=== PATIENT | male | born 1965 | race African-American/Black ===

== ENCOUNTER → 2019-08-18 | Outpatient (CLI) | payer OTHER ==
[2015-05-27 14:58] VITALS: BP 152/78
[~2019-08-18] MED LIST: AMLO5TAB10 PO; LOSA1TAB25 PO
--- NOTE | 2019-08-18 16:41 | RAD ---
Bilateral lower extremity arterial ultrasound History: Hypertension, smoker, nonpalpable pulses of the lower extremities bilaterally Findings: Multiple grayscale, color, and duplex spectral analysis sonographic images were acquired of the lower extremity arteries bilaterally. There are no previous similar exams. There are mostly triphasic waveforms bilaterally other than biphasic waveforms of the left anterior tibial and dorsalis pedis arteries. No vessel occlusion is demonstrated. There is no velocity change in a pattern suggestive of significant focal stenosis. Velocities in cm/sec: RIGHT Common femoral artery 151 Profunda femoris artery 125 Proximal SFA 121 Mid SFA 120 Distal SFA 88 Popliteal artery 117 Posterior tibial artery 103 Peroneal artery 67 Anterior tibial artery 107 Dorsalis pedis artery 88 LEFT: Common femoral artery 164 Profunda femoris artery 142 Proximal SFA 121 Mid SFA 100 Distal SFA 79 Popliteal artery 78 Posterior tibial artery 97 Peroneal artery 58 Anterior tibial artery 68 Dorsalis pedis artery 56 Impression: 1. No significant focal stenosis or vessel occlusion is demonstrated. There are mostly triphasic waveforms other than biphasic waveforms of the left dorsalis pedis and anterior tibial arteries. Electronically signed by: Jevon Naik MD (08/18/2019 4:38 PM) [id number]
== END | disposition home or self-care (01) ==
LOC: US 15:32
PROVIDERS: ATTEND Podiatrist
DX: I10 Essential (primary) hypertension (principal); F17.200 Nicotine dependence, unspecified, uncomplicated
CPT/HCPCS: 93925